=== PATIENT | male | born 2000 | race Caucasian/White ===

== ENCOUNTER 2018-04-25 18:44 | Emergency (ER) | payer OTHER ==
[2018-04-25 19:08] VITALS: BP 129/73; PULSE 93; RESP 18; TEMP 98
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
[2018-04-25] MEDS ORDERED: ACETAMINOPHEN TAB 500 MG TAB PO STA (19:56)
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
--- NOTE | 2018-04-25 20:58 | XR ---
EXAMINATION TYPE: XR foot complete LT DATE OF EXAM: 04/25/2018 COMPARISON: NONE HISTORY: Foot pain TECHNIQUE: 3 views FINDINGS: On the lateral view there is a lucent line through the anterior calcaneus. The remainder o f the left foot appears intact. Metatarsals appear normal. IMPRESSION: There is a lucent line over the anterior calcaneus that I think is not related to a fract ure.
== END 2018-04-25 21:57 | disposition home or self-care (01) ==
LOC: EC 18:44
DX: Z04.1 Encounter for examination and observation following transport accident (principal); R51 Headache; R42 Dizziness and giddiness; M54.2 Cervicalgia; M79.672 Pain in left foot; Z87.891 Personal history of nicotine dependence; V89.2XXA Person injured in unspecified motor-vehicle accident, traffic, initial encounter; Y92.410 Unspecified street and highway as the place of occurrence of the external cause
CPT/HCPCS: 70450; 72125; 99284